=== PATIENT | female | born 1940 | race Caucasian/White ===

== ENCOUNTER 2023-08-31 14:51 | Outpatient (AMB) | payer MEDICARE, OTHER, SELFPAY ==
--- NOTE | 2023-08-31 15:10 | AM.OFFWIN_ITS ---
Intake Vital Signs 08/31/23 15:11 Height 5 ft 6 in Weight 125 lb BMI 20.2 BP 130/70 Blood Pressure Location Rt brachial Position Sitting Pulse 97 Pulse Source Pulse Oximeter Pulse Oximetry (%) 97 Oxygen Delivery Method Room Air Intake Visit Reasons: [employer] fell and cut right arm in few places Allergies Benzodiazepines Allergy (Mild, Verified 08/31/23 15:12) Unknown lisinopril Allergy (Mild, Verified 08/31/23 15:12) Unknown meloxicam Allergy (Mild, Verified 08/31/23 15:12) Unknown beta blockers Allergy (Mild, Uncoded 08/31/23 15:12) Unknown Do you need a note to return to daycare/school/sports/work: No HPI HPI Comments History of Present Illness Details 83 y/o female patient who presents to [facility] in [facility] with c/o superficial cuts on her right arm and forearm. Pt fell and bruised her arm while gardening outside. Denies LOC, head injury or trauma. Physical Exam Vital Signs: Last Vital Signs Pulse 97 08/31/23 15:11 BP 130/70 08/31/23 15:11 Pulse Ox 97 08/31/23 15:11 Oxygen Delivery Method Room Air 08/31/23 15:11 BMI result Body Mass Index 20.2 Const General: comfortable and no acute distress Nutritional Appearance: underweight Orientation/consciousness: patient oriented x3 Skin Other: Right arm with small superficial abrasions, Trauma: abrasion (Right arm and forearm, small amount of bleeding. ) Neuro General: patient oriented x3, gait normal and moves all extremities Psych Speech and movement: Normal speech and movement present Assessment & Plan Assessment & Plan (1) Abrasion forearm: Code(s): S50.819A - Abrasion of unspecified forearm, initial encounter Qualifiers: Encounter type: initial encounter Laterality: right Qualified Code(s): S50.811A - Abrasion of right forearm, initial encounter Plan: - Cleaned the wound and dressed with Xeroform, wrapped with gauze - RTC if symptoms worse. Coding Level of Care Code New Pt Level 3 (37424) Diagnoses Abrasion of right forearm, initial encounter S50.811A Encounter type: initial encounter Laterality: right Time Spent (min) 15
[2023-08-31 15:11] VITALS: BP 130/70; PULSE 97; O2SAT 97; BMI 20.2
== END 2023-08-31 16:12 | disposition home or self-care (01) ==
PROVIDERS: PCP Internal Medicine; Visit Provider Nurse Practitioner Family
DX: S50.811A Abrasion of right forearm, initial encounter (principal)
CPT/HCPCS: 99203